=== PATIENT | female | born 1940 | race Caucasian/White ===

== ENCOUNTER 2016-09-19 17:30 | Emergency (ER) | payer MEDICARE ==
[2016-09-19] MEDS ORDERED: SODIUM CHLORIDE 0.9% 1000ML 1,000 ML ONE (18:04)
[2016-09-19] MEDS ORDERED: SODIUM CHLORIDE 0.9% 1000ML 1,000 ML IVS ONE ×2 (18:16→20:14)
--- NOTE | 2016-09-19 18:21 | ED.PDOC ---
History of Present Illness - General Chief Complaint: GI Problem Stated Complaint: rectal bleeding Time Seen by Provider: 09/19/16 18:16 Information Source: patient, RN notes reviewed, Vital Signs reviewed, family, EMS Exam Limitations: no limitations - History of Present Illness Initial Comments: Patient presents to the ER with rectal bleeding. This was noticed just prior to arrival. She was admitted to the halfway from a rehab center she has been at since a stroke in August. Last month she was admitted to [facility] for a rectal bleed which she reports stopped on its own after 1.5 days. She did she GI while there but reports they did not do a colonoscopy or upper endoscopy at that time. She denies any other symptoms. Denies abdominal pain. Abdominal Pain Onset Location: other - Denies pain Pain Radiation: no radiation Timing/Duration: 1 hour Improving Factors: nothing Worsening Factors: nothing Associated Symptoms: denies symptoms Review of Systems - Review of Systems Constitutional: States: no symptoms reported EENTM: States: no symptoms reported Respiratory: States: no symptoms reported Cardiology: States: no symptoms reported Gastrointestinal/Abdominal: States: see HPI, other - Rectal Bleeding. Denies: abdominal pain, constipation, diarrhea, nausea, vomiting Musculoskeletal: States: no symptoms reported Skin: States: no symptoms reported Neurological: States: pre-existing deficit - R hemiplegia s/p CVA All other Systems: No Change from Baseline Past Medical History (General) - Patient Medical History Hx Stroke: Yes Surgical History: appendectomy, other - Vaccination History Hx Tetanus, Diphtheria Vaccination: No Hx Influenza Vaccination: No Hx Pneumococcal Vaccination: No Immunizations Up to Date: Yes - Social History Hx Tobacco Use: No - Activities of Daily Living Senior Care/Assisted Living (if applicable):: [facility] Agency (if applicable):: None Family Medical History - Family History Mother Living Status: Hx Family Diabetes: Yes Physical Exam - Physical Exam General Appearance: Alert, Comfortable, Frail, No apparent distress Respiratory: chest non-tender, lungs clear, normal breath sounds, no respiratory distress, no accessory muscle use Cardiovascular/Chest: regular rate, rhythm, no edema, no gallop, no murmur Gastrointestinal/Abdominal: soft, tenderness - Suprapubic and LLQ with guarding , mass - LLQ Rectal Exam: other - large amout of bright red blood and stool Neurologic: alert, normal mood/affect, oriented x 3 Skin Exam: normal color, warm/dry Comments: Vital Signs - 24 hr 09/19/16 17:55 Temperature 97.5 F L Pulse Rate [ 84 Left radial] Respiratory 18 Rate Blood Pressure 119/69 [Left Arm] O2 Sat by Pulse 98 Oximetry Progress - Progress Progress: 09/19/16 18:58 She has had 2000cc of urine output into coates catheter. This could explain her abd tenderness and mass felt. She has UTI - will start antibiotics Review of records from [facility] show Hg between 8.8-10.5. GI consult - constipated, no colonoscopy done @ that time. No bleeding noted by database marketing analyst. 09/19/16 19:[address] Ivy @ [facility] who accepted patient in transfer for rectal bleeding. Discussed with family and patient who agree to transfer. Hg is stable, Levaquin IV is infusing - Results/Orders Results/Orders: Laboratory Tests 09/19/16 09/19/16 09/19/16 17:45 17:45 18:44 WBC 18.6 H RBC 3.10 L Hgb 8.8 L Hct 27.5 L MCV 88.9 MCH 28.3 MCHC 31.9 L RDW 14.6 H Plt Count 669 H MPV 7.8 Absolute Neuts (auto) 14.70 H Absolute Lymphs (auto) 2.30 Absolute Monos (auto) 1.40 H Absolute Eos (auto) 0.20 Absolute Basos (auto) 0.00 Neutrophils % 79.1 H Lymphocytes % 12.4 L Monocytes % 7.4 Eosinophils % 0.9 L Basophils % 0.2 Sodium 140 Potassium 3.8 Chloride 106 Carbon Dioxide 27 Anion Gap 10.8 L BUN 26 H Creatinine 0.63 BUN/Creatinine Ratio 41.3 H Random Glucose 111 H Serum Osmolality 284.9 Calcium 8.8 Total Bilirubin 0.3 AST 14 ALT 21 Alkaline Phosphatase 76 Serum Total Protein 5.3 L Albumin 2.2 L Globulin 3.1 Albumin/Globulin Ratio 0.7 L Urine Color Yellow Urine Appearance Turbid H Urine pH 5.5 Ur Specific Andrews 1.020 Urine Protein 100 H Urine Glucose (UA) Negative Urine Ketones Negative Urine Blood Moderate H Urine Nitrite Positive H Urine Bilirubin Negative Urine Urobilinogen 1.0 Ur Leukocyte Esterase Large H Urine RBC 5-10 H Urine WBC Tntc H Ur Epithelial Cells 1-3 Urine Bacteria 4+ H Vital Signs - 24 hr 09/19/16 09/19/16 17:55 19:21 Temperature 97.5 F L 98 F Pulse Rate 82 Pulse Rate [ 84 82 Left radial] Respiratory 18 18 Rate Blood Pressure 119/69 138/64 [Left Arm] O2 Sat by Pulse 98 96 Oximetry - EKG/XRAY/CT CT Ordered: Yes - Marked thickening of rectosigmoid colon wall - mass vs infection Departure - Departure Clinical Impression: Rectal bleeding, Colon tumor, Urinary retention UTI (urinary tract infection) Qualifiers: Urinary tract infection type: acute cystitis Hematuria presence: with hematuria Qualified Code(s): N30.01 - Acute cystitis with hematuria Time of Disposition: 20:02 Disposition: Transfer to Hospital Condition: Fair Departure Forms: ED Discharge - Pt. Copy, Patient Portal Self Enrollment Referrals: MARIA DE JESUS BRADEN [Primary Care Provider] - 1-2 Weeks Transfer to Outside Facility - Transfer Information Accepting Provider:: Dr. Ivy Accepting Facility: [facility] Reason for Transfer: required specialist not available
[2016-09-19] MEDS ORDERED: levoFLOXacin 500MG IV 500 MG in PREMIX BAG 1 BAG IVPB ONE (19:01)
--- NOTE | 2016-09-19 19:34 | CT ---
EXAM DESCRIPTION: Abdomen/Pelvis w/o Contrast CLINICAL HISTORY: 76 years Female Rectal bleed with LLQ mass COMPARISON: None. TECHNIQUE: Contiguous axial images obtained through the abdomen and pelvis without IV contrast. Reformatted images obtained. This exam was performed according to our department optimization program which includes automated exposure control, adjustment of the mA and/or kv according to patient size and/or use of iterative reconstruction technique. FINDINGS: The lung bases are clear. The liver appears unremarkable. The spleen and pancreas appear unremarkable. No adrenal masses. Small right renal cyst. Nonobstructing calculus in the left kidney. No evidence of obstructive uropathy or hydronephrosis. The gallbladder is distended. Cholelithiasis is present. There is ectasia of the abdominal aorta. Vascular calcification is present. Vascular calcification. Simmons catheter in a decompressed urinary bladder. There is abnormal asymmetric soft tissue in the rectosigmoid colon with surrounding inflammation and stranding. Findings are concerning for mass although colitis is not excluded. There is moderate fecal material in the colon. Findings may reflect constipation. Small amount of fluid in the pelvis. Multilevel degenerative change in the spine. IMPRESSION: There is marked wall thickening in the rectosigmoid colon which is asymmetric. Findings may reflect neoplasm versus proctocolitis. There is adjacent stranding in the perirectal and presacral space. Moderate fecal material in the colon which may reflect constipation Cholelithiasis with distended gallbladder Diverticulosis. Electronically signed by: Melina Trinidad 09/19/2016 7:34 PM CDT
[2016-09-19] MEDS ORDERED: levoFLOXacin 500MG IV 100 ML IVPB ONE (19:38)
[2016-09-19 20:47] VITALS: BP 98/58; TEMP 98; O2SAT 99
== END 2016-09-19 20:25 | disposition short-term general hospital (02) ==
LOC: ER 17:30
DX: D49.0 Neoplasm of unspecified behavior of digestive system (principal); R33.9 Retention of urine, unspecified; N30.01 Acute cystitis with hematuria
CPT/HCPCS: 36415; 74176; 80053; 81001; 85025; 87086; 87088; 87186; J1956; J7030

== ENCOUNTER → 2018-02-10 | Outpatient (CLI) | payer MEDICARE | LOC: GOCC 19:42 | PROVIDERS: ATTEND Internal Medicine | DX: N39.0 Urinary tract infection, site not specified (principal); M62.81 Muscle weakness (generalized) ==

== ENCOUNTER 2018-05-17 12:17 | Inpatient (IN) | payer MEDICARE, OTHER ==
--- NOTE | 2018-05-17 13:09 | ED.PDOC ---
History of Present Illness - General Chief Complaint: Respiratory Problem Stated Complaint: cough and congestion Time Seen by Provider: 05/17/18 12:32 Source: patient Exam Limitations: clinical condition - History of Present Illness Comments: PT SENT FOR EVALUATION OF COUGH AND CONGESTION, HYPOXEMIA. Timing/Duration: this morning Cough Quality/Degree: moderate, dry cough Associated Symptoms: denies symptoms Allergies/Adverse Reactions: Allergies Codeine Allergy (Verified 05/17/18 12:29) Iodine Allergy (Verified 05/17/18 12:29) Penicillins Allergy (Verified 05/17/18 12:29) Sulfa Antibiotics Allergy (Verified 05/17/18 12:29) Home Medications: Ambulatory Orders Amlodipine Besylate 5 mg PO DAILY 09/19/16 Lactobacillus [Acidophilus] 1 cap PO BID 09/19/16 Metoprolol Tartrate 50 mg PO BID 09/19/16 Multiple Vitamin [Multi Vitamin] 1 tab PO DAILY 09/19/16 Timolol Maleate (Ophth) [Timolol Maleate Ophthalmi] 0.5 % OP DAILY 09/19/16 Valproic Acid 500 mg PO DAILY 09/19/16 Ascorbic Acid [Vitamin C] 500 mg PO DAILY 05/17/18 Aspirin [Aspirin Adult Low Dose] 81 mg PO DAILY 05/17/18 Calcium Carbonate (Antacid) [Tums] 1 ea PO PRN 05/17/18 Gabapentin 300 mg PO DAILY 05/17/18 Glycolax Powder PRN 05/17/18 Guaifenesin [Mucinex] 600 mg PO PRN 05/17/18 Ipratropium-Albuterol [Ipratropium [place]/Albut] 1 jeffrey IN 1700 05/17/18 Ipratropium-Albuterol [Ipratropium [place]/Albut] 1 jeffrey IN PRN 05/17/18 Melatonin-Pyridoxine [Eql Melatonin/Vitamin B-6 5-1 mg] 1 tab PO BEDTIME 05/17/18 Naproxen Sodium [Aleve] 220 mg PO PRN 05/17/18 Ondansetron [Zofran Odt] 8 mg PO PRN 05/17/18 Valproic Acid 1,000 mg PO BEDTIME 05/17/18 Zinc Sulfate 220 mg PO DAILY 05/17/18 diphenhydrAMINE HCL [Benadryl] 25 mg PO PRN 05/17/18 Review of Systems - Review of Systems Constitutional: States: see HPI EENTM: States: see HPI Respiratory: States: cough. Denies: short of breath Cardiology: Denies: chest pain Gastrointestinal/Abdominal: Denies: diarrhea, vomiting Genitourinary: States: see HPI Musculoskeletal: States: see HPI Skin: States: see HPI Neurological: States: see HPI Endocrine: States: see HPI Hematologic/Lymphatic: States: see HPI Past Medical History (General) - Patient Medical History Hx Stroke: Yes Hx Congestive Heart Failure: No Hx Diabetes: No - Vaccination History Hx Tetanus, Diphtheria Vaccination: No Hx Influenza Vaccination: No Hx Pneumococcal Vaccination: No - Social History Hx Tobacco Use: Yes Hx Alcohol Use: No - history of use Hx Substance Use Treatment: No - Activities of Daily Living [facility]isted Living (if applicable[facility]:: [facility] (if applicable):: None Family Medical History - Family History Mother Living Status: Hx Family Diabetes: Yes Physical Exam - Physical Exam General Appearance: Alert, Frail, No apparent distress Eye Exam: bilateral normal ENT Exam: normal ENT inspection, hearing grossly normal Neck: full range of motion, supple, normal inspection Respiratory: other - CANNOT SIT UP, DIFFUSE RHONCHI WITH BIBASILAR RALES. SATS 84% ON RA (HYPOXEMIA) Cardiovascular/Chest: regular rate, rhythm, no murmur Gastrointestinal/Abdominal: non tender, soft, no organomegaly Extremity: normal range of motion, non-tender, normal inspection Neurologic: alert, other - R SIDED PARALYSIS (CHRONIC) Lymphatic: no adenopathy Progress - Progress Progress: 05/17/18 1400 PT STABLE, SATS 91% ON O2, SLIGHT RESP ACIDOSIS, BUT WILL HOLD OFF BIPAP PT IN NO DISTRESS. 1430 D/W JOHN BEAVER, WILL ADMIT - EKG/XRAY/CT XRAY: chest - BOO PERIHILAR INFILTRATES. Departure - Departure Clinical Impression: Hypoxemia, PVD (peripheral vascular disease) Pneumonia Qualifiers: Pneumonia type: due to unspecified organism Laterality: bilateral Lung location: unspecified part of lung Qualified Code(s): J18.9 - Pneumonia, unspecified organism Time of Disposition: 14:30 Disposition: Admit Patient Condition: Fair Home Medications: Ambulatory Orders Amlodipine Besylate 5 mg PO DAILY 09/19/16 Lactobacillus [Acidophilus] 1 cap PO BID 09/19/16 Metoprolol Tartrate 50 mg PO BID 09/19/16 Multiple Vitamin [Multi Vitamin] 1 tab PO DAILY 09/19/16 Timolol Maleate (Ophth) [Timolol Maleate Ophthalmi] 0.5 % OP DAILY 09/19/16 Valproic Acid 500 mg PO DAILY 09/19/16 Ascorbic Acid [Vitamin C] 500 mg PO DAILY 05/17/18 Aspirin [Aspirin Adult Low Dose] 81 mg PO DAILY 05/17/18 Calcium Carbonate (Antacid) [Tums] 1 ea PO PRN 05/17/18 Gabapentin 300 mg PO DAILY 05/17/18 Glycolax Powder PRN 05/17/18 Guaifenesin [Mucinex] 600 mg PO PRN 05/17/18 Ipratropium-Albuterol [Ipratropium [place]/Albut] 1 jeffrey IN 1700 05/17/18 Ipratropium-Albuterol [Ipratropium [place]/Albut] 1 jeffrey IN PRN 05/17/18 Melatonin-Pyridoxine [Eql Melatonin/Vitamin B-6 5-1 mg] 1 tab PO BEDTIME 05/17/18 Naproxen Sodium [Aleve] 220 mg PO PRN 05/17/18 Ondansetron [Zofran Odt] 8 mg PO PRN 05/17/18 Valproic Acid 1,000 mg PO BEDTIME 05/17/18 Zinc Sulfate 220 mg PO DAILY 05/17/18 diphenhydrAMINE HCL [Benadryl] 25 mg PO PRN 05/17/18 Decision To Admit - Decistion To Admit Decision to Admit Reason: Admit from ER Decision to Admit Date: 05/17/18 Decision to Admit Time: 14:00
--- NOTE | 2018-05-17 13:22 | RAD ---
EXAM DESCRIPTION: Chest,1 View CLINICAL HISTORY: 77 years Female, COUGH, HYPOXEMIA COMPARISON: None. TECHNIQUE: Single frontal view of the chest. IMPRESSION: Cardiac silhouette is enlarged. Aorta is partially calcified. Apparent opacification of the left upper lung is likely accounted by the patient's rotation during image acquisition. No focal or masslike consolidation otherwise. No pleural effusion or pneumothorax. Thoracic spondylosis. Electronically signed by: Tristan Amanda MD 05/17/2018 1:21 PM [facility]
[2018-05-17] MEDS ORDERED: IPRATROPIUM/ALBUTEROL 3 ML VIAL NEB ONE ×2 (13:36→13:40)
[2018-05-17] MEDS ORDERED: CEFEPIME 2 GM in SODIUM CHL 0.9% 50ML MIN-BAG+ 50 ML IVPB ONE (13:46)
[2018-05-17] MEDS ORDERED: SODIUM CHL 0.9% 50ML MIN-BAG+ 50 ML IVPB ONE ×3 (13:51→19:47)
[2018-05-17] MEDS ORDERED: CEFEPIME 2 GM VIAL ONE ×3 (13:51→19:48)
--- NOTE | 2018-05-17 15:11 | HP ---
SUPERVISING PHYSICIAN: Wilfredo Ponce MD CHIEF COMPLAINT: Coughing and congestion. HISTORY OF PRESENT ILLNESS: This is a 77-year-old female who is a resident of [facility]. She has a history of a stroke in the past with right sided paralysis. She has had low O2 saturations at the detention down to 84% and has had coughing and congestion for several days now. In the Emergency Room, her oxygen saturation on arrival was 84%. She came up to 91% on 2 liters of oxygen via nasal cannula. Her vital signs on admission were a temperature of 97.3, heart rate 65, blood pressure 99/79. Her blood pressure went down as low as 88/67. Respiratory rate 20, O2 saturation came up to 90% to 91% on 2 liters nasal cannula. Laboratory was done and showed a white count of 10,600 with a left shift on differential, hemoglobin 13, hematocrit 40.2. Chemistry showed electrolytes basically within normal limits, but her total bilirubin was 2.1, AST 177, ALT 140, alkaline phosphatase 386. BNP was 608. Albumin 2.9, globulin 4.3. Her initial lactic acid was 2.5. Subsequent lactic acid was 3.3 after fluids. Her blood gas showed pCO2 50, pO2 73, ABG 7.32, O2 saturation 95%. Chest x-ray per radiologic interpretation showed cardiac silhouette enlarged, aorta partially calcified, apparent opacification of the left upper lung is likely accounted for by the patient's rotation during image acquisition. No focal or masslike consolidation otherwise. No pleural effusion, no pneumothorax. Thoracic spondylosis, but on review of the chest x-ray myself, it looks like she has some early bibasilar atelectasis. Blood cultures were drawn. She was given cefepime in the Emergency Room as well as some fluids. I was called for hospital admission. It is to be noted that the patient is a very poor historian and we have incomplete records from the detention and she has never been admitted to this hospital previously. PAST MEDICAL HISTORY: 1. Hypertension. 2. 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 3. Neuropathy. 4. Questionable seizure as the patient is on valproic acid. 5. Questionable eye disorder. She is on timolol eyedrops. PAST SURGICAL HISTORY: Unknown. OUTPATIENT MEDICATIONS: Per the EMR and awaiting verification. ALLERGIES: CODEINE, IODINE, PENICILLINS, SULFAS. REVIEW OF SYSTEMS: Unable to assess due to the patient's inability to answer most questions. PHYSICAL EXAMINATION: VITAL SIGNS: Temperature 98.7. Heart rate 88. Blood pressure 104/62. Respiratory rate 2. O2 saturation 94% on 3 liters nasal cannula. GENERAL: This is a 77-year-old, frail female who is in no apparent distress. HEENT: Normocephalic, atraumatic. Pupils are equal and reactive. Oropharynx is clear. NECK: Supple without mass. RESPIRATORY: Diffuse rhonchi throughout with bibasilar rales. She is diminished at the bases. CARDIOVASCULAR: Regular rate and rhythm. GASTROINTESTINAL: Abdomen is soft, nondistended, nontender. Bowel sounds are positive. EXTREMITIES: No cyanosis, clubbing or edema. NEUROLOGIC: Awake, alert. She has right sided paralysis from a previous stroke. She is oriented to person only. She has a very difficult time answering questions. LABORATORY: Labs and films are as per history of present illness. IMPRESSION: 1. Hypercapnic, hypoxic respiratory failure. 2. Bilateral pneumonia with concerns for healthcare acquired pneumonia as she is a resident of [facility]. She had an O2 saturation of 84% and a blood pressure of 88/67 on admission. 3. Urinary tract infection. 4. History of cerebrovascular accident width right sided paralysis. 5. Elevated liver function tests. 6. Hypertension. PLAN: We will admit the patient to the hospital. Initially, she was to be put on BiPAP in the Emergency Room, but after several breathing treatments and being placed on oxygen, her oxygen saturations improved. We will use BiPAP as needed. The patient is a DNR. I have started the pneumonia guidelines including good pulmonary hygiene. I will continue the cefepime as ordered in the Emergency Room. Cefepime should cover the UTI as well. Will monitor cultures as they become available. I will restart her home medications as soon as they are verified. I am not sure why she will has elevated liver enzymes and we will continue to monitor those and I will see if I can get a better medical history on this patient from the detention tomorrow. She is on Protonix for ulcer prophylaxis and Lovenox for DVT prophylaxis. We will continue to monitor the patient closely and follow as needed. #[id number] [facility]
[2018-05-17] MEDS ORDERED: ACETAMINOPHEN 325 MG TAB PO PRN (16:46)
[2018-05-17] MEDS ORDERED: ALBUTEROL SULFATE 2.5 MG/3 ML VIAL NEB PRN (16:46)
[2018-05-17] MEDS ORDERED: ONDANSETRON INJ 4 MG/2 ML VIAL IV PRN (16:55)
[2018-05-17] MEDS: IV SET AND CAP CHANGE INJ INJ SCH (17:40)
[2018-05-17] MEDS ORDERED: SODIUM CHLORIDE 0.9% 1000ML 1,000 ML IVS ONE (17:44)
[2018-05-17] MEDS: CEFEPIME 2 GM in SODIUM CHL 0.9% 50ML MIN-BAG+ 50 ML IVPB SCH (18:00)
[2018-05-17] MEDS: guaiFENesin ER TAB 600 MG TAB PO SCH (18:01)
[2018-05-17] MEDS ORDERED: PANTOPRAZOLE SODIUM IV 40 MG VIAL ONE (19:48)
[2018-05-17] MEDS: DIVALPROEX SODIUM 250 MG TAB PO SCH (20:43)
[2018-05-17] MEDS: LACTOBACILLUS 1 TAB PO SCH (20:43)
[2018-05-17] MEDS: METOPROLOL TARTRATE 50 MG TAB PO SCH ×2 (20:43→20:48)
[2018-05-17] MEDS: MELATONIN PYRIDOXINE PO SCH (20:44)
[2018-05-17] MEDS: [UNRECOGNIZED DRUG - OTHER] PO SCH (20:44)
[2018-05-17] MEDS: ENOXAPARIN SODIUM 40 MG/0.4 ML SYG SUBCU SCH (20:44)
[2018-05-17] MEDS: SODIUM CHLORIDE 0.9% (FLUSH) 10 ML SYG IV SCH (20:44)
[2018-05-17] MEDS: IPRATROPIUM/ALBUTEROL 3 ML VIAL INH SCH (21:09)
[2018-05-18] MEDS: guaiFENesin ER TAB 600 MG TAB PO SCH ×2 (04:43→16:49)
[2018-05-18] MEDS: CEFEPIME 2 GM in SODIUM CHL 0.9% 50ML MIN-BAG+ 50 ML IVPB SCH ×2 (04:43→16:49)
[2018-05-18] MEDS: PANTOPRAZOLE SODIUM IV 40 MG VIAL IV SCH (05:58)
[2018-05-18] MEDS: IPRATROPIUM/ALBUTEROL 3 ML VIAL INH SCH ×4 (07:20→20:45)
[2018-05-18] MEDS: amLODIPine BESYLATE 5 MG TAB PO SCH (08:18)
[2018-05-18] MEDS: ASPIRIN (ENTERIC COATED) 81 MG TAB PO SCH (08:18)
[2018-05-18] MEDS: LACTOBACILLUS 1 TAB PO SCH ×2 (08:18→20:35)
[2018-05-18] MEDS: GABAPENTIN 300 MG CAP PO SCH (08:18)
[2018-05-18] MEDS: DIVALPROEX SODIUM 250 MG TAB PO SCH ×2 (08:19→20:35)
[2018-05-18] MEDS: SODIUM CHLORIDE 0.9% (FLUSH) 10 ML SYG IV SCH ×2 (08:19→20:35)
[2018-05-18] MEDS: METOPROLOL TARTRATE 50 MG TAB PO SCH ×2 (08:19→20:35)
[2018-05-18] MEDS: TIMOLOL MALEATE OP SCH (08:20)
--- NOTE | 2018-05-18 09:11 | RAD ---
EXAM DESCRIPTION: Chest,1 View CLINICAL HISTORY: Pneumonia COMPARISON: Chest radiograph dated May 17, 2018 TECHNIQUE: Upright portable PA view of the chest FINDINGS: Significant atherosclerosis and tortuosity of the thoracic aorta. Secondary to patient's position, the bilateral lung apices are obscured by the patient's chin. Cardiac silhouette and pulmonary vascularity are within normal limits. Previously described opacification in the left upper lung is not seen on this exam, and likely artifactual. Minimal linear opacities in the left lower lung zone most likely represent subsegmental atelectasis. Otherwise, lungs show no focal consolidative infiltrates. No significant pleural effusion. No pneumothorax. No acute osseous abnormality. IMPRESSION: 1. No acute cardiopulmonary process. 2. Other findings as above. Electronically signed by: Mekhi Bourne MD 05/18/2018 9:09 AM [facility]
[2018-05-18] MEDS ORDERED: CEFEPIME 2 GM VIAL ONE ×2 (16:46→19:28)
[2018-05-18] MEDS ORDERED: SODIUM CHL 0.9% 50ML MIN-BAG+ 50 ML IVPB ONE ×2 (16:46→19:28)
[2018-05-18] MEDS: ENOXAPARIN SODIUM 40 MG/0.4 ML SYG SUBCU SCH (20:35)
[2018-05-18] MEDS: MELATONIN PYRIDOXINE PO SCH (20:36)
[2018-05-18] MEDS: [UNRECOGNIZED DRUG - OTHER] PO SCH (20:36)
[2018-05-19] MEDS: CEFEPIME 2 GM in SODIUM CHL 0.9% 50ML MIN-BAG+ 50 ML IVPB SCH ×2 (05:14→17:33)
[2018-05-19] MEDS: guaiFENesin ER TAB 600 MG TAB PO SCH ×2 (05:15→17:33)
[2018-05-19] MEDS: PANTOPRAZOLE SODIUM IV 40 MG VIAL IV SCH (06:06)
--- NOTE | 2018-05-19 07:54 | PN ---
SUPERVISING PHYSICIAN: Wilfredo Ponce MD DATE: 05/18/18 SUBJECTIVE: The patient is lying in bed. She is nauseated. She has not been nauseated earlier in the day but since she has eaten her meal she has actually not thrown up but feels like she could at this time. Nurse was called and she was given Zofran and is somewhat better. Otherwise, she denies any chest pain, shortness of breath or nausea or vomiting. She does complain that she has some coughing. She is very weak at times but otherwise she feels slightly better than yesterday. OBJECTIVE: VITAL SIGNS: Temperature 97.6, heart rate 85, blood pressure 92/58,respiratory rate 20. 02 saturation 93% on 3 liters nasal cannula. RESPIRATORY: Coarse rhonchi throughout, somewhat diminished at the bases. CARDIAC: Regular rate and rhythm. GI: Abdomen soft, nondistended, non-tender. Bowel sounds are positive. NEURO: She is awake and alert and oriented to person only. LABORATORY: WBC 6.9 with hemoglobin of 11.9 and hematocrit 36.9. Electrolytes are basically within normal limits. AST has improved to 91 with ALT of 104, alkaline phosphatase 294. Preliminary blood cultures show no growth after 24 hours. Urine culture and sputum culture are pending. Chest x-ray shows no acute cardiopulmonary process. Other findings shows significant atherosclerosis and tortuosity of the thorax and aorta. No significant pleural effusion or osseous abnormalities. All other labs and films have been reviewed via the EMR. ASSESSMENT: 1.. Hypercapnic, hypoxic respiratory failure that is improving. 2. Bilateral pneumonia with concerns for healthcare acquired pneumonia as she is a resident of [facility]. She had an O2 saturation of 84% and a blood pressure of 88/67 on admission. 3. Urinary tract infection. 4. History of cerebrovascular accident width right-sided paralysis. 5. Elevated liver function tests. 6. Hypertension. PLAN: We will continue present supportive care including good pulmonary hygiene. I will repeat her labs in the morning. Will continue on the present antibiotics and monitor cultures as they become available. Her liver function tests have improved and will continue to monitor her closely. Her home medications have been restarted. She does have antiemetics for nausea. Otherwise, we will continue to monitor closely and follow as needed. #[id number] [facility]
[2018-05-19] MEDS: IPRATROPIUM/ALBUTEROL 3 ML VIAL INH SCH ×4 (08:10→19:25)
[2018-05-19] MEDS: LACTOBACILLUS 1 TAB PO SCH ×2 (10:04→20:34)
[2018-05-19] MEDS: DIVALPROEX SODIUM 250 MG TAB PO SCH ×2 (10:09→20:33)
[2018-05-19] MEDS: METOPROLOL TARTRATE 50 MG TAB PO SCH ×2 (10:09→20:34)
[2018-05-19] MEDS: ASPIRIN (ENTERIC COATED) 81 MG TAB PO SCH (10:09)
[2018-05-19] MEDS: TIMOLOL MALEATE OP SCH (12:18)
[2018-05-19] MEDS: SODIUM CHLORIDE 0.9% (FLUSH) 10 ML SYG IV PRN (12:20)
[2018-05-19] MEDS: GABAPENTIN 300 MG CAP PO SCH (12:23)
[2018-05-19] MEDS: amLODIPine BESYLATE 5 MG TAB PO SCH (12:23)
[2018-05-19] MEDS: SODIUM CHLORIDE 0.9% (FLUSH) 10 ML SYG IV SCH ×2 (12:24→20:35)
--- NOTE | 2018-05-19 16:11 | US ---
EXAM DESCRIPTION: Liver: ULTRASOUND. CLINICAL HISTORY: elevated liver enzymes COMPARISON: CT abdomen 09/19/2016 TECHNIQUE: Transabdominal scannin-dimensional and Doppler modes. FINDINGS: Gallbladder: Normal size with an echogenic stone seen in the neck, approximately 1 cm diameter with acoustic shadowing. No fluid around the gallbladder. No wall thickening. 2.2 mm. Non-tender with transducer pressure. Common bile duct: caliber 13 mm which is dilated. Liver: Heterogeneous but otherwise normal echogenicity; contour liver capsule smooth where seen. No fluid around the liver. Intrahepatic biliary ducts normal caliber. Doppler hepatopedal flow portal vein. Normal caliber. Long axis right lobe 15.8 cm. Pancreas: Included segments with normal echogenicity. Duct not seen. Right kidney: long axis measures 10.1 cm. Increased cortical echogenicity. 10 mm cortical thickness. No hydronephrosis IMPRESSION: 1. Stone in the neck of the gallbladder but no gallbladder enlargement or wall thickening. No fluid around the gallbladder and not tender during the examination. 2. Markedly dilated common bile duct but no obstructing elements seen in the lumen. No intrahepatic biliary dilatation. No ascites. Normal size of the liver. Normal vascularity. Smooth capsule. 3. Increased echogenicity of the right renal cortex and decreased thickness suggests a chronic process. No hydronephrosis. Electronically signed by: Hardy Ahn MD 05/19/2018 4:09 PM [employer]
[2018-05-19] MEDS ORDERED: SODIUM CHL 0.9% 50ML MIN-BAG+ 50 ML IVPB ONE ×2 (17:23→20:13)
[2018-05-19] MEDS ORDERED: CEFEPIME 2 GM VIAL ONE ×2 (17:23→20:14)
[2018-05-19] MEDS: ENOXAPARIN SODIUM 40 MG/0.4 ML SYG SUBCU SCH (20:34)
[2018-05-19] MEDS: MELATONIN PYRIDOXINE PO SCH (20:34)
[2018-05-19] MEDS: [UNRECOGNIZED DRUG - OTHER] PO SCH (20:34)
[2018-05-20] MEDS: CEFEPIME 2 GM in SODIUM CHL 0.9% 50ML MIN-BAG+ 50 ML IVPB SCH (04:52)
[2018-05-20] MEDS: guaiFENesin ER TAB 600 MG TAB PO SCH ×3 (04:53→17:02)
[2018-05-20] MEDS: PANTOPRAZOLE SODIUM IV 40 MG VIAL IV SCH (06:11)
[2018-05-20] MEDS: IPRATROPIUM/ALBUTEROL 3 ML VIAL INH SCH ×4 (07:53→20:36)
[2018-05-20] MEDS: TIMOLOL MALEATE OP SCH (09:00)
--- NOTE | 2018-05-20 09:22 | PN ---
SUPERVISING PHYSICIAN: Wilfredo Ponce MD DATE: 05/19/18 SUBJECTIVE: The patient is lying in bed. She said she feels much better than she has been. She still has cough but improved. We discussed her liver sonogram. Hopefully she can be discharged tomorrow and go back to [facility]. I explained that I was awaiting her sputum culture prior to her discharge. She denies any chest pain or nausea or vomiting. OBJECTIVE: VITAL SIGNS: Temperature 98.1, heart rate 87, blood pressure 94/68,respiratory rate 20. 02 saturation 94% on 3 liters nasal cannula. RESPIRATORY: A few scattered rhonchi throughout, diminished at the bases. She does get slightly tachypneic at times but can carry on a conversation without issues. CARDIAC: Regular rate and rhythm. GI: Abdomen soft, nondistended, non-tender. Bowel sounds are positive. NEURO: She is awake and alert and oriented to person and place only. LABORATORY: CBC is within normal limits with the exception that she has a left shift on her differential. Her electrolytes are basically within normal limits. Her liver enzymes went up today. Her bilirubin is 2.5, AST 158, ALT 140, alkaline phosphatase 375. Sputum culture is pending. Her preliminary blood cultures show no growth after 48 hours. Liver ultrasound shows: !. A stone in the neck of the gallbladder but no gallbladder enlargement or wall thickening, no fluid around the gallbladder and non-tender during the examination. 2. Markedly dilated common bile duct but no obstructing element seen in the lumen. No intrahepatic biliary dilatation, no ascites. Normal size of the liver, normal vascularity. Smooth capsule. 3. Increased echogenicity in the right renal cortex and decreased thickness suggests a chronic process. No hydronephrosis. All other labs and films have been reviewed via the EMR. ASSESSMENT: 1.. Hypercapnic, hypoxic respiratory failure that is improving. 2. Bilateral pneumonia with concerns for healthcare acquired pneumonia as she is a resident of [facility]. She had an O2 saturation of 84% and a blood pressure of 88/67 on admission. 3. Urinary tract infection. 4. History of cerebrovascular accident width right-sided paralysis. 5. Elevated liver function tests. 6. Hypertension. PLAN: We will continue present supportive care. Continue to await sputum cultures as well as monitor blood cultures. I will repeat lab in the morning and awaiting her hepatitis panel. Again, her liver functions have worsened and I do not have a good history on the patient. She is unable to tell me any of her past medical issues. At some point it may be recommended to discuss some of her issues with Dr. Burroughs but the patient is a DNR and I am not sure she would be a surgical candidate at any point. She does have a Simmons catheter present but that is from the long term and will keep that. Otherwise, we will continue to monitor closely and follow as needed. #[id number] MTDD
[2018-05-20] MEDS: SODIUM CHLORIDE 0.9% (FLUSH) 10 ML SYG IV SCH ×2 (09:49→20:47)
[2018-05-20] MEDS: METOPROLOL TARTRATE 50 MG TAB PO SCH ×2 (09:49→20:47)
[2018-05-20] MEDS: DIVALPROEX SODIUM 250 MG TAB PO SCH ×2 (09:49→20:46)
[2018-05-20] MEDS: ASPIRIN (ENTERIC COATED) 81 MG TAB PO SCH (09:49)
[2018-05-20] MEDS: LACTOBACILLUS 1 TAB PO SCH ×2 (09:49→20:47)
[2018-05-20] MEDS: amLODIPine BESYLATE 5 MG TAB PO SCH (09:49)
[2018-05-20] MEDS: GABAPENTIN 300 MG CAP PO SCH (09:49)
--- NOTE | 2018-05-20 12:04 | RAD ---
EXAM: Chest,1 View CLINICAL INDICATION: Pneumonia COMPARISON: 05/18/2018 FINDINGS: A single view of the chest was obtained. The heart size is normal. The pulmonary vascularity is unremarkable. The lungs are clear except for redemonstration of minimal atelectasis or scarring in the left lung base. There is no consolidation, infiltrate, pleural effusion, or pneumothorax. IMPRESSION: No evidence of active pulmonary disease. Electronically signed by: Abel Daugherty MD 05/20/2018 12:02 PM [facility]
[2018-05-20] MEDS: levoFLOXacin 750MG IV 750 MG in PREMIX BAG 1 BAG IVPB SCH (12:50)
[2018-05-20] MEDS: IV SET AND CAP CHANGE INJ INJ SCH (18:02)
--- NOTE | 2018-05-20 20:33 | PN ---
DATE: 05/20/18 SUPERVISING PHYSICIAN: Dameon Leonard M.D. SUBJECTIVE: The patient says she feels pretty well this morning. She is denying actually any pain. She has been afebrile. She does seem a little bit confused but is easily reoriented. OBJECTIVE: VITAL SIGNS: Temperature 97.9, pulse 87, blood pressure 98/64, respirations 20, satting 91% on nasal cannula at 2 liters. I's and O's show a negative balance of 500j with 650 in, 1150 out. Weight is 74.7 kg. CHEST: Lung sounds are diminished towards bilateral bases with notable prominent rhonchi heard bilaterally. No rales or obvious wheezing is noted. HEART: Regular rate and rhythm. ABDOMEN: Soft, non-tender. Positive bowel sounds. EXTREMITIES: Without any clubbing, cyanosis or edema. NEUROLOGIC: She is awake, alert and oriented to herself at this time, but easily reorients to place and time. She has left sided paralysis which is a residual from previous CVA. No other new findings are noted. LABORATORY: CBC shows white count 5,300 with hemoglobin 11.3, hematocrit 34.3, platelets 227,000. Differential shows a left shift with 5% bands today. Chemistries show a mildly decreased potassium at 3.4, BUN 36, creatinine 0.46 with glucose 84, magnesium 1.9. Bilirubin is again elevated at 2.3. AST is up to 170, ALT at 149, alkaline phosphatase 344. Albumin 2.2. Amylase and lipase are both showing normal limits. Toxicology shows Valproic acid is 64 which is within therapeutic ranges. Hepatitis panel is pending. MICROBIOLOGY: Sputum cultures final results show abundant mixed normal respiratory rickey. Urine culture is pending. Blood cultures remain negative after 3 days. RADIOLOGY: Chest x-ray this morning per radiology interpretation shows no evidence of acute pulmonary disease. ASSESSMENT: 1. Bibasilar pneumonia, questionable healthcare acquired with the patient being a resident of [facility] with a hypercapnic hypoxic component. 2. Urinary tract infection with cultures pending. 3. History of cerebrovascular accident width right-sided paralysis. 4. Persistent elevated liver function enzymes and total bilirubin with findings on ultrasound of the liver showing a stone in the neck of the gallbladder with no evidence of enlargement or wall thickening with a markedly dilated common bile duct but no obstructing elements. 5. History of hypertension but showing to be mildly hypotensive, likely secondary to #1. PLAN: The plan at this point is to consult with Dr. Burroughs in regards to findings of the ultrasound of the liver. Given that she has had an increase in bands and has been on Cefepime which possibly could be resulting in some of her elevated liver function, I will change her to Levaquin and renally dose as appropriate. Will await final urinary cultures to further target antibiotic therapy and will await Dr. Burroughs's consultation for further care plan. Until she can transition back to outpatient management will continue to monitor and treat as needed. #[id number] MTDD
--- NOTE | 2018-05-20 20:46 | CONS ---
DATE OF CONSULTATION: 05/20/18 HISTORY OF PRESENT ILLNESS: The patient is a 77 year-old female who is a resident of [facility] for the past 8 months. She has an indwelling Simmons catheter and a right hemiparesis status post cerebrovascular accident. She had become hypoxic and was coughing and congested at the [facility], and was brought to the hospital for this. The chest x-ray at admission did not show a discrete consolidation or effusion and her urine had a large number of white cells, so she was admitted and started on antibiotics and pulmonary toilet. She was initially started on Cefepime but that has been changed to Levaquin due to the elevated liver function. PAST MEDICAL HISTORY: 1. Hypertension. 2. Cerebrovascular accident. 3. Neuropathy. 4. Probable seizure disorder due to the fact the patient is on Valproic acid. 5. Some eye disorder. She is Timolol eye drops. PAST SURGICAL HISTORY: 1. Hemigastrectomy approximately 30 years ago, she believes it was for an ulcer. CURRENT MEDICATIONS: List is on the chart. ALLERGIES: CODEINE, IODINE, PENICILLINS AND SULFA. REVIEW OF SYSTEMS: The patient specifically denies problems with eating fatty food or any food. She denies right upper quadrant pain with radiation to the back. Denies significant nausea or weight loss prior to the hospitalization. PHYSICAL EXAMINATION: GENERAL: The patient is awake, alert and cooperative, and answered questions that I asked. HEENT: Sclera are not icteric. Mucous membranes are moist. NECK: Without adenopathy. CHEST: She has equal breath sounds bilaterally with upper airway sounds as she is coughing during the exam. ABDOMEN: Soft. There is minimal right upper quadrant tenderness, certainly no guarding, rebound or mass. PELVIC AND RECTAL: Examination are deferred. EXTREMITIES: She has a right sided hemiparesis. LABORATORY: Elevated liver function tests with bilirubin that has come down to 2. Chest x-ray is as noted. The ultrasound of her liver revealed a gallbladder with a stone in the neck but no pericholecystic fluid. No wall thickening. The common bile duct was dilated to about 13 mm but with no obvious obstructing lesion. IMPRESSION: 1. Upper respiratory tract infection, possible. 2. Urinary tract infection with indwelling Simmons catheter. 3. Cholelithiasis, rule out choledocholithiasis. 4. Hyperbilirubinemia. PLAN: Continue the Levaquin. Recheck lab in the morning. If the patient's bilirubin continues to climb, she will likely need an MRCP and possibly an ERCP during this hospitalization. If the number resolve and she is able to tolerate a diet, I would recommend completing her treatment for her urinary tract/respiratory tract, then obtaining an MRCP as an outpatient along with cardiac evaluation for possible ERCP and/or laparoscopic cholecystectomy. #[id number] MTDZ
[2018-05-20] MEDS: ENOXAPARIN SODIUM 40 MG/0.4 ML SYG SUBCU SCH (20:47)
[2018-05-20] MEDS: [UNRECOGNIZED DRUG - OTHER] PO SCH (20:47)
[2018-05-20] MEDS: MELATONIN PYRIDOXINE PO SCH (20:47)
[2018-05-20] MEDS: diphenhydrAMINE HCL 50 MG/ML VIAL IV PRN (22:57)
[2018-05-21] MEDS: guaiFENesin ER TAB 600 MG TAB PO SCH ×2 (04:33→18:38)
[2018-05-21] MEDS: PANTOPRAZOLE SODIUM IV 40 MG VIAL IV SCH (06:02)
[2018-05-21] MEDS: IPRATROPIUM/ALBUTEROL 3 ML VIAL INH SCH ×4 (08:43→20:46)
[2018-05-21] MEDS: LACTOBACILLUS 1 TAB PO SCH ×2 (10:38→21:47)
[2018-05-21] MEDS: amLODIPine BESYLATE 5 MG TAB PO SCH (10:39)
[2018-05-21] MEDS: METOPROLOL TARTRATE 50 MG TAB PO SCH ×2 (10:39→21:47)
[2018-05-21] MEDS: DIVALPROEX SODIUM 250 MG TAB PO SCH ×2 (10:39→21:46)
[2018-05-21] MEDS: SODIUM CHLORIDE 0.9% (FLUSH) 10 ML SYG IV SCH ×2 (10:40→21:48)
[2018-05-21] MEDS: ASPIRIN (ENTERIC COATED) 81 MG TAB PO SCH (10:40)
[2018-05-21] MEDS: GABAPENTIN 300 MG CAP PO SCH (10:40)
[2018-05-21] MEDS: TIMOLOL MALEATE OP SCH (10:41)
[2018-05-21] MEDS: levoFLOXacin 750MG IV 750 MG in PREMIX BAG 1 BAG IVPB SCH (11:38)
--- NOTE | 2018-05-21 21:05 | PN ---
DATE: 05/21/18 SUPERVISING PHYSICIAN: Dameon Leonard M.D. SUBJECTIVE: The patient has not had any complaints today. She has been coughing quite a bit and clearing her airways fairly well. She has had no fevers. OBJECTIVE: VITAL SIGNS: Temperature 98, pulse 116, blood pressure 89/62, respirations 16, satting 96% on nasal cannula at rest. I's and O's show a negative balance of 240 with 710 in 950 out. Weight is 75.1 kg. CHEST: Lung sounds are much clearer today but diminished towards the bases with just faint rhonchi heard bilaterally. HEART: Regular rate and rhythm. ABDOMEN: Soft, non- tender. Positive bowel sounds. EXTREMITIES: Without any clubbing, cyanosis or edema. NEUROLOGIC: She is alert and oriented times two, herself and location. At times is disoriented but easily reoriented. Her right sided paralysis which is residual from previous is also notable. No other findings are noted. LABORATORY: White count remains within normal limits at 7,300, hemoglobin and hematocrit are stable at 11.6 and 35.7 respectively. Platelet count is 240,000. Differential shows a resolving left shift. No bands are present today. Chemistry shows a persistent hypokalemia with potassium 3.4, BUN 28, creatinine 0.44. Liver functions are improving. Total bilirubin is down to 1.4, AST is down to 77, ALT is down to 115, alkaline phosphatase is down to 337. MICROBIOLOGY: Urine culture preliminary growth shows Enterococcus species Group B. Further reports pending. Final culture result on sputum showed abundant mixed normal rickey. Blood cultures remain negative at 4 days. RADIOLOGY: No additional radiographic studies today. ASSESSMENT: 1. Bibasilar pneumonia with concerns for possible healthcare acquired as the patient is a resident of [facility] with a hypercapnic hypoxic component showing good clinical improvement on Levaquin. 2. Urinary tract infection with Enterococcus species Group B with further studies pending. 3. Cholelithiasis with need to rule out choledocholithiasis, although bilirubin and liver enzymes are improving. 4. History of hypertension but showing to be mildly hypotensive, likely secondary to #1. PLAN: Will continue with current plan, having changed her to Levaquin. Await final culture results of the urine. Will continue with some fluids and follow her lab in the morning. Anticipate discharging tomorrow. She will need close clinical followup with Dr. Mcdermott if possible to set up as a new patient, and probably will need to have an MRCP and possibly ERCP at some point. She will need to be cleared by cardiology at some point in the future in case there is a need for any surgical intervention. She will be continued to be followed by Dr. Burroughs. Until we can transition to outpatient management will continue to monitor and treat as needed. #[id number] MTDG
[2018-05-21] MEDS: ENOXAPARIN SODIUM 40 MG/0.4 ML SYG SUBCU SCH (21:47)
[2018-05-21] MEDS: MELATONIN PYRIDOXINE PO SCH (21:48)
[2018-05-21] MEDS: [UNRECOGNIZED DRUG - OTHER] PO SCH (21:48)
[2018-05-21] MEDS: diphenhydrAMINE HCL 50 MG/ML VIAL IV PRN (21:57)
[2018-05-22] MEDS: PANTOPRAZOLE SODIUM IV 40 MG VIAL IV SCH (06:02)
[2018-05-22] MEDS: SODIUM CHLORIDE 0.9% (FLUSH) 10 ML SYG IV PRN (06:02)
[2018-05-22] MEDS: guaiFENesin ER TAB 600 MG TAB PO SCH (06:02)
[2018-05-22] MEDS: IPRATROPIUM/ALBUTEROL 3 ML VIAL INH SCH ×2 (08:08→13:17)
[2018-05-22] MEDS: DIVALPROEX SODIUM 250 MG TAB PO SCH (09:08)
[2018-05-22] MEDS: amLODIPine BESYLATE 5 MG TAB PO SCH (09:08)
[2018-05-22] MEDS: ASPIRIN (ENTERIC COATED) 81 MG TAB PO SCH (09:08)
[2018-05-22] MEDS: GABAPENTIN 300 MG CAP PO SCH (09:08)
[2018-05-22] MEDS: TIMOLOL MALEATE OP SCH (09:09)
[2018-05-22] MEDS: LACTOBACILLUS 1 TAB PO SCH (09:09)
[2018-05-22] MEDS: METOPROLOL TARTRATE 50 MG TAB PO SCH (09:09)
[2018-05-22] MEDS: SODIUM CHLORIDE 0.9% (FLUSH) 10 ML SYG IV SCH (09:09)
[2018-05-22] MEDS ORDERED: NITROFURANTOIN MONOHYDRATE MAC 100 MG CAP PO ONE (10:02)
[2018-05-22] MEDS: levoFLOXacin 750MG IV 750 MG in PREMIX BAG 1 BAG IVPB SCH (12:00)
[2018-05-22] MEDS ORDERED: NITROFURANTOIN MONOHYDRATE MAC 100 MG CAP ONE (12:24)
[2018-05-22 16:05] VITALS: BP 106/73; TEMP 97.8; O2SAT 99
[2018-05-22] MEDS ORDERED: NITROFURANTOIN MONOHYDRATE MAC 100 MG CAP PO SCH (17:00)
--- NOTE | 2018-06-01 11:52 | DS ---
SUPERVISING PHYSICIAN: Bronson Mcdermott MD ADMISSION DIAGNOSIS: 1. Hypercapnic, hypoxic respiratory failure. 2. Bilateral pneumonia with concerns for healthcare acquired pneumonia as she is a resident of [facility]. She had an O2 saturation of 84% and a blood pressure of 88/67 on admission. 3. Urinary tract infection. 4. History of cerebrovascular accident width right sided paralysis. 5. Elevated liver function tests. 6. Hypertension. DISCHARGE DIAGNOSIS: 1. Bibasilar pneumonia with concerns for possible healthcare acquired as the patient is a resident of [facility] with a hypercapnic, hypoxic component showing good clinical improvement on Levaquin. Cultures showed no growth, blood cultures or sputum cultures. 2. Urinary tract infection with final culture results showing Enterococcus Group B sensitive to ampicillin, nitrofurantoin and vancomycin. 3. Elevated bilirubin and liver enzymes returning to normal without any current evidence of cholelithiasis or choledocholithiasis, but needing further workup and possibly MRCP at discharge, with the patient initially having an elevated alkaline phosphatase, returning to baseline fairly quickly prior to discharge and felt to be related to possible passage of a gallstone within the ductal system needing further workup as an outpatient. 4. History of hypertension but showing to be mildly hypotensive, likely secondary to #1. REASON FOR HOSPITALIZATION: This is a 77-year-old female who is a resident of [facility]. She has a history of a stroke in the past with right sided paralysis. She has had low O2 saturations at the [facility] down to 84% and has had coughing and congestion for several days now. In the Emergency Room, her oxygen saturation on arrival was 84%. She came up to 91% on 2 liters of oxygen via nasal cannula. Her vital signs on admission were a temperature of 97.3, heart rate 65, blood pressure 99/79. Her blood pressure went down as low as 88/67. Respiratory rate 20, O2 saturation came up to 90% to 91% on 2 liters nasal cannula. Laboratory was done and showed a white count of 10,600 with a left shift on differential, hemoglobin 13, hematocrit 40.2. Chemistry showed electrolytes basically within normal limits, but her total bilirubin was 2.1, AST 177, ALT 140, alkaline phosphatase 386. BNP was 608. Albumin 2.9, globulin 4.3. Her initial lactic acid was 2.5. Subsequent lactic acid was 3.3 after fluids. Her blood gas showed pCO2 50, pO2 73, ABG 7.32, O2 saturation 95%. Chest x-ray per radiologic interpretation showed cardiac silhouette enlarged, aorta partially calcified, apparent opacification of the left upper lung is likely accounted for by the patient's rotation during image acquisition. No focal or masslike consolidation otherwise. No pleural effusion, no pneumothorax. Thoracic spondylosis, but on review of the chest x-ray myself, it looks like she has some early bibasilar atelectasis. Blood cultures were drawn. She was given cefepime in the Emergency Room as well as some fluids. I was called for hospital admission. the patient was a very poor historian with incomplete records from the [facility] and she had never been admitted to this hospital previously, but was admitted in stable condition. LABORATORY: CBC on admission showed white count 10,600, at discharge 7,500. Hemoglobin and hematocrit were stable at discharge at 11.6 and 35.7, respectively. Platelet count 240,000. Differential did show a left shift, but resolved prior to discharge. She did have 5% bands on 05/20/18, but this had normalized prior to discharge. Blood gas analysis showed pH 7.320, pCO2 50, pO2 73, bicarb 25.4, O2 saturation 95. Chemistries on admission showed normal electrolytes. At discharge, potassium was slightly low at 3.5, BUN 22, creatinine 0.45. Liver functions did show an elevated bilirubin that went up to 2.5 after admission. AST and ALT were all elevated as well as alkaline phosphatase with a maximum AST being 158, ALT 149, but returning to baseline and at discharge was 69 and AST at discharge was normal at 28. Alkaline phosphatase did go up to a maximum of 375, but was returning to baseline at 256 prior to discharge. Total bilirubin maxed out at 2.5 and normalized to 0.9. Amylase and lipase were both normal. Urinalysis showed orange urine, but otherwise within normal limits except for a small amount of leukocyte esterase. Microscopic showed 30 to 40 WBCS with rare bacteria and 3 epithelials. She did have a valproic acid of 64 which was within normal limits. Hepatitis panel was without any findings for A, B or C. MICROBIOLOGY: Final urine culture showed a group B enterococcus which is sensitive as noted above. Blood cultures remained negative after 5 days. Sputum culture final results showed abundant mixed normal respiratory rickey. HOSPITAL COURSE: Ms. Calderon was admitted on 05/17/18 with both urinary tract infection and concerns for bilateral pneumonia and initial hypercapnic/hypoxic respiratory failure. She was started on fluids, antibiotics and the day after admission, the patient was found to have elevated liver functions with concern for possible cholelithiasis versus choledocholithiasis. Dr. Burroughs was consulted and recommended continuation of fluids and treatment. She was continued on antibiotics for underlying urinary tract infection which included cefepime and Levaquin. She was continued on fluids. She had good pain control. She progressed well overnight and was found the next morning to have her liver functions returning to baseline levels. It was felt she had probably passed a gallstone and was no longer having any symptoms and responding well to treatment. It was felt she could continue with outpatient management to followup with Dr. Burroughs as needed as well as her primary care provider. PLAN: Ms. Calderon was discharged on 05/22/18 with instructions to followup with Dr. Mcdermott on 05/29/18 at 10:45 AM. She was to resume her home medications per JUN. She had an MRCP scheduled as an outpatient. She had noted she probably would refuse to have that done once discharged. Her diet was to be low-fat diet as instructed by Dr. Burroughs. She was to return to the hospital should she have any concerning symptoms. Diet at discharge was low-fat diet. Activity to per physical therapy. Medications prescribed at discharge included: 1. Levaquin 500 mg for 7 days. 2. Nitrofurantoin 100 mg twice daily for 5 days. DISPOSITION: The patient is discharged to [facility]. Her urine culture did show resistance to Levaquin, however, the patient has shown good response to treatment. There was again concern for possible pneumonia, therefore, she was continued on Levaquin. Her cultures showed sensitivity to nitrofurantoin, therefore, she was started on nitrofurantoin as well for the underlying urinary tract infection. CONDITION AT DISCHARGE: Stable and improving. #[id number] [facility]
== END 2018-05-22 15:20 | DRG 189 ==
LOC: ER 12:17 → MS 15:11 → OBSVTOIN 15:11
PROVIDERS: ADMIT Nurse Practitioner Acute Care; ATTEND Nurse Practitioner Family
DX: J96.91 Respiratory failure, unspecified with hypoxia (principal); J18.9 Pneumonia, unspecified organism; I69.351 Hemiplegia and hemiparesis following cerebral infarction affecting right dominant side; N39.0 Urinary tract infection, site not specified; J96.92 Respiratory failure, unspecified with hypercapnia; I10 Essential (primary) hypertension; G62.9 Polyneuropathy, unspecified; R74.8 Abnormal levels of other serum enzymes; E87.6 Hypokalemia; K80.20 Calculus of gallbladder without cholecystitis without obstruction; I95.9 Hypotension, unspecified; Y95 Nosocomial condition; Z66 Do not resuscitate; Z88.0 Allergy status to penicillin; Z88.2 Allergy status to sulfonamides; Z88.5 Allergy status to narcotic agent; Z91.048 Other nonmedicinal substance allergy status

== ENCOUNTER 2019-03-05 21:55 | Inpatient (IN) | payer MEDICARE, OTHER ==
[2019-03-05] MEDS ORDERED: IPRATROPIUM/ALBUTEROL 3 ML VIAL NEB ONE (22:05)
--- NOTE | 2019-03-05 22:22 | RAD ---
EXAM DESCRIPTION: Chest,1 View CLINICAL HISTORY: 78 years Female hypoxia, wheezing COMPARISON: May 20, 2018. TECHNIQUE: AP view of the chest was obtained. FINDINGS: Cardiac silhouette is enlarged. Central vessels are noted increased. Patient is rotated to the left. No infiltrates or effusions seen. No consolidation. No pneumothorax. IMPRESSION: Enlarged heart with no evidence for congestive heart failure. No infiltrates seen. Electronically signed by: Macarena Lagunas MD 03/05/2019 10:21 PM [facility]
[2019-03-05] MEDS ORDERED: CEFEPIME 1 GM in SODIUM CHLORIDE 0.9% 50ML 50 ML IVPB ONE (22:45)
[2019-03-05] MEDS ORDERED: CEFEPIME 2 GM VIAL ONE (22:59)
[2019-03-05] MEDS ORDERED: SODIUM CHLORIDE 0.9% 50ML 50 ML ONE (22:59)
[2019-03-05] MEDS ORDERED: FUROSEMIDE INJ 20 MG/2 ML VIAL IV ONE (23:15)
--- NOTE | 2019-03-05 23:18 | ED.PDOC ---
History of Present Illness - General Chief Complaint: General Stated Complaint: altered mental status Time Seen by Provider: 03/05/19 21:57 Source: patient Exam Limitations: clinical condition - History of Present Illness Initial Comments: the patient's a 78-year-old female sent over from the [facility] secondary to increasing oxygen demand, mild confusion and change in her urine color. She does have a chronic indwelling Simmons catheter that has become more cloudy over the last 24 hours. Based upon a urinalysis sent in from them earlier today she does have a urinary tract infection and has had problems from these before. Additionally the patient was starting to require oxygen again. She was requiring about 2-1/2 L by the time EMS arrived. She was refusing her breathing treatments. She agreed to have them here and her lungs did actually clear up fairly well with the breathing treatments here. She is still requiring about a liter to maintain her oxygen saturations when she sleeps. She still does have some mild scattered wheezes but much improved since her arrival. The patient does have atrial fibrillation that is rate controlled and Lasix until we gave her the breathing treatments. I do not have records of her having atrial fibrillation in the past but then again I do not have any previous EKGs. The patient has had strokes in the past. No evidence of any new stroke. She does have chronic changes related to her previous strokes. No evidence of new pain. Timing/Duration: unsure Severity: moderate Improving Factors: nothing Worsening Factors: nothing Associated Symptoms: cough, malaise, shortness of breath Allergies/Adverse Reactions: Allergies Codeine Allergy (Verified 05/17/18 12:29) Iodine Allergy (Verified 05/17/18 12:29) Penicillins Allergy (Verified 05/17/18 12:29) Sulfa Antibiotics Allergy (Verified 05/17/18 12:29) Home Medications: Ambulatory Orders Amlodipine Besylate 5 mg PO DAILY 09/19/16 Lactobacillus [Acidophilus] 1 cap PO BID 09/19/16 Metoprolol Tartrate 50 mg PO BID 09/19/16 Multiple Vitamin [Multi Vitamin] 1 tab PO DAILY 09/19/16 Timolol Maleate (Ophth) [Timolol Maleate Ophthalmi] 0.5 % OP DAILY 09/19/16 Valproic Acid 500 mg PO DAILY 09/19/16 Ascorbic Acid [Vitamin C] 500 mg PO DAILY 05/17/18 Aspirin [Aspirin Adult Low Dose] 81 mg PO DAILY 05/17/18 Calcium Carbonate (Antacid) [Tums] 1 ea PO PRN 05/17/18 Gabapentin 300 mg PO DAILY 05/17/18 Glycolax Powder PRN 05/17/18 Guaifenesin [Mucinex] 600 mg PO PRN 05/17/18 Ipratropium-Albuterol [Ipratropium [place]/Albut 0.5-2.5 (3) mg/3Ml] 1 jeffrey IN 1700 05/17/18 Ipratropium-Albuterol [Ipratropium [place]/Albut 0.5-2.5 (3) mg/3Ml] 1 jeffrey IN PRN 05/17/18 Melatonin-Pyridoxine [Eql Melatonin/Vitamin B-6 5-1 mg] 1 tab PO BEDTIME 05/17/18 Naproxen Sodium [Aleve] 220 mg PO PRN 05/17/18 Ondansetron [Zofran Odt] 8 mg PO PRN 05/17/18 Valproic Acid 1,000 mg PO BEDTIME 05/17/18 Zinc Sulfate 220 mg PO DAILY 05/17/18 diphenhydrAMINE HCL [Benadryl] 25 mg PO PRN 05/17/18 Nitrofurantoin Monohydrate Mac [Macrobid] 100 mg PO BIDFD 5 Days cap 05/22/18 levoFLOXacin [Levaquin] 500 mg PO DAILY 7 Days tab 05/22/18 Review of Systems - Review of Systems Constitutional: States: malaise, weakness EENTM: States: no symptoms reported Respiratory: States: cough, short of breath, wheezing Cardiology: States: no symptoms reported Gastrointestinal/Abdominal: States: no symptoms reported Genitourinary: States: no symptoms reported Musculoskeletal: States: no symptoms reported - chronic issues Skin: States: no symptoms reported Neurological: States: no symptoms reported - chronic problems Endocrine: States: no symptoms reported All other Systems: No Change from Baseline Past Medical History (General) - Patient Medical History Hx Seizures: No Hx Stroke: Yes Hx Dementia: No Hx Asthma: No Hx of COPD: No Hx Cardiac Disorders: No Hx Congestive Heart Failure: No Hx Pacemaker: No Hx Hypertension: Yes Hx Thyroid Disease: No Hx Diabetes: No Hx Gastroesophageal Reflux: No Hx Renal Disease: No Hx Cancer: No Hx of HIV: No Hx Hepatitis C: No Hx MRSA: No Surgical History: noncontributory - Vaccination History Hx Tetanus, Diphtheria Vaccination: No Hx Influenza Vaccination: No Hx Pneumococcal Vaccination: No - Social History Hx Tobacco Use: Yes Hx Alcohol Use: No - history of use Hx Substance Use: No Hx Substance Use Treatment: No Hx Physical Abuse: No Hx Emotional Abuse: No - Activities of Daily Living [facility]if applicable[facility] Family Medical History - Family History Mother Living Status: Hx Family Diabetes: Yes Physical Exam - Physical Exam General Appearance: Alert, Comfortable, No apparent distress - she is fairly pleasantly demented. She is alert and interactive. Eye Exam: bilateral normal Ears, Nose, Throat: hearing grossly normal - chronically mildly decreased bilaterally, normal pharynx Neck: full range of motion, supple Respiratory: accessory muscle use, rhonchi, wheezing Cardiovascular/Chest: other - +1 edema bilaterally. Regular rate but irregular rhythm. Peripheral Pulses: radial,right: 2+, radial,left: 2+ Gastrointestinal/Abdominal: non tender, soft Rectal Exam: deferred Extremity: no calf tenderness, pelvis stable, deformity - chronic, pedal edema, other - chronic deficits of bilateral lower extremities and the right upper extremities from previous stroke. Chronic edema in his extremities due to decreased movement. She was a left upper extremity well. 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 Skin Exam: pallor Comments: Vital Signs - 24 hr 03/05/19 21:55 Temperature 100.0 F H Pulse Rate [ 78 monitor] Respiratory 20 Rate Blood Pressure 92/74 [Left Arm] O2 Sat by Pulse 95 Oximetry Progress - Progress Progress: 03/05/19 23:24 the patient's a 78-year-old female presenting to the emergency room for a urinary tract infection and a COPD exacerbation. The patient is being placed on cefepime and azithromycin. The patient does have an indwelling chronic Simmons catheter. The patient does have atrial fibrillation that is actually rate controlled without the breathing treatment. I'm uncertain and have been unable to figure out if the patient has had atrial fibrillation before. her primary care will need to be contacted on this tomorrow. Certainly, with previous intracranial hemorrhages, rushing the patient on blood thinners is likely not a good idea. from the pulmonary standpoint, the patient responded very well to the DuoNeb treatment. Xopenex may be preferred over albuterol with this patient given the mild tachycardic response. Continue oxygen supplementation for now. She will see receive a small steroid dosages well for the COPD exacerbation. No diuretics have been given at this time. Admit for continued care. Blood cultures have been done. - Results/Orders Results/Orders: chest x-ray shows some chronic mild cardiomegaly with minimal vascular congestion. Changes of COPD. No obvious large effusions. EKG shows atrial fibrillation at a rate of 115 bpm. This is after the breathing treatment. Possible Q waves in lead 3. Normal axis. Poor R-wave progression in anterior leads. No definitive ST segment or T-wave changes indicative of acute ischemia. Normal QT interval. No previous EKG to compare to. Laboratory Tests 03/05/19 03/05/19 03/05/19 22:38 22:38 22:38 WBC 12.8 H RBC 4.62 Hgb 13.5 Hct 41.6 MCV 90.2 MCH 29.3 MCHC 32.5 L RDW 15.4 H Plt Count 261 MPV 7.6 Absolute Neuts (auto) 10.40 H Absolute Lymphs (auto) 0.90 L Absolute Monos (auto) 1.30 H Absolute Eos (auto) 0.10 Absolute Basos (auto) 0.10 Neutrophils % 81.5 H Lymphocytes % 7.2 L Monocytes % 10.2 H Eosinophils % 0.7 L Basophils % 0.4 PT 9.8 INR 0.98 PTT (SP) 29.3 Sodium 137 Potassium 4.2 Chloride 94 L Carbon Dioxide 31 Anion Gap 16.2 BUN 26 H Creatinine 0.61 BUN/Creatinine Ratio 42.6 H Random Glucose 174 H Serum Osmolality 282.8 Lactic Acid Calcium 9.1 Magnesium 2.0 Total Bilirubin 0.8 AST 17 ALT 9 L Alkaline Phosphatase 73 Creatine Kinase 14 L CK-MB (CK-2) 0.5 CK-MB (CK-2) % Not Reportable Troponin I < 0.02 B-Natriuretic Peptide 198.0 H Serum Total Protein 6.6 Albumin 2.6 L Globulin 4.0 H Albumin/Globulin Ratio 0.7 L 03/05/19 22:38 WBC RBC Hgb Hct MCV MCH MCHC RDW Plt Count MPV Absolute Neuts (auto) Absolute Lymphs (auto) Absolute Monos (auto) Absolute Eos (auto) Absolute Basos (auto) Neutrophils % Lymphocytes % Monocytes % Eosinophils % Basophils % PT INR PTT (SP) Sodium Potassium Chloride Carbon Dioxide Anion Gap BUN Creatinine BUN/Creatinine Ratio Random Glucose Serum Osmolality Lactic Acid 1.9 Calcium Magnesium Total Bilirubin AST ALT Alkaline Phosphatase Creatine Kinase CK-MB (CK-2) CK-MB (CK-2) % Troponin I B-Natriuretic Peptide Serum Total Protein Albumin Globulin Albumin/Globulin Ratio Departure - Departure Clinical Impression: COPD with acute exacerbation UTI (urinary tract infection) due to urinary indwelling Simmons catheter Qualifiers: Indwelling urinary catheter type: indwelling urethral catheter Encounter type: initial encounter Qualified Code(s): T83.511A - Infection and inflammatory reaction due to indwelling urethral catheter, initial encounter; N39.0 - Urinary tract infection, site not specified Disposition: Admit Patient Departure Forms: ED Discharge - Pt. Copy, Patient Portal Self Enrollment Referrals: MARIA DE JESUS BRADEN [Primary Care Provider] - 1-2 Weeks Home Medications: Ambulatory Orders Amlodipine Besylate 5 mg PO DAILY 09/19/16 Lactobacillus [Acidophilus] 1 cap PO BID 09/19/16 Metoprolol Tartrate 50 mg PO BID 09/19/16 Multiple Vitamin [Multi Vitamin] 1 tab PO DAILY 09/19/16 Timolol Maleate (Ophth) [Timolol Maleate Ophthalmi] 0.5 % OP DAILY 09/19/16 Valproic Acid 500 mg PO DAILY 09/19/16 Ascorbic Acid [Vitamin C] 500 mg PO DAILY 05/17/18 Aspirin [Aspirin Adult Low Dose] 81 mg PO DAILY 05/17/18 Calcium Carbonate (Antacid) [Tums] 1 ea PO PRN 05/17/18 Gabapentin 300 mg PO DAILY 05/17/18 Glycolax Powder PRN 05/17/18 Guaifenesin [Mucinex] 600 mg PO PRN 05/17/18 Ipratropium-Albuterol [Ipratropium [place]/Albut 0.5-2.5 (3) mg/3Ml] 1 jeffrey IN 1700 05/17/18 Ipratropium-Albuterol [Ipratropium [place]/Albut 0.5-2.5 (3) mg/3Ml] 1 jeffrey IN PRN 05/17/18 Melatonin-Pyridoxine [Eql Melatonin/Vitamin B-6 5-1 mg] 1 tab PO BEDTIME 05/17/18 Naproxen Sodium [Aleve] 220 mg PO PRN 05/17/18 Ondansetron [Zofran Odt] 8 mg PO PRN 05/17/18 Valproic Acid 1,000 mg PO BEDTIME 05/17/18 Zinc Sulfate 220 mg PO DAILY 05/17/18 diphenhydrAMINE HCL [Benadryl] 25 mg PO PRN 05/17/18 Nitrofurantoin Monohydrate Mac [Macrobid] 100 mg PO BIDFD 5 Days cap 05/22/18 levoFLOXacin [Levaquin] 500 mg PO DAILY 7 Days tab 05/22/18 Decision To Admit - Decistion To Admit Decision to Admit Reason: Medical Nature Decision to Admit Date: 03/05/19 Decision to Admit Time: 23:28
[2019-03-05] MEDS ORDERED: methylPREDNISolone SODIUM SUC 125 MG/2 ML VIAL IV ONE (23:27)
[2019-03-05] MEDS ORDERED: AZITHROMYCIN IV 500 MG in SODIUM CHLORIDE 0.9% 250ML 250 ML IVPB ONE (23:28)
[2019-03-05] MEDS ORDERED: SODIUM CHLORIDE 0.9% (FLUSH) 10 ML SYG IV PRN (23:29)
--- NOTE | 2019-03-05 23:52 | HP ---
SUPERVISING PHYSICIAN: Dameon Leonard MD CHIEF COMPLAINT: Shortness of breath. HISTORY OF PRESENT ILLNESS: This is a 78-year-old female who resides at [facility]. She came to the Emergency Room with altered mental status and shortness of breath. Apparently she was placed on oxygen there. She does not utilize oxygen on a regular basis. Additionally, she has an indwelling Simmons catheter that has become cloudy over the past 24 hours or so. For that reason, she came to the Emergency Room. When she came in the Emergency Room, her workup included labs and films. Her chest x-ray showed cardiomegaly with no congestive heart failure and no infiltrates. Urinalysis was done earlier on 03/05/19 and showed positive nitrites and findings consistent with urinary tract infection. In the Emergency Room, she was given steroids for COPD exacerbation as well as some nebulizers. She was referred for admission for these reasons. This morning, the patient is alert, answers questions appropriately. She still has a little bit of shortness of breath and a little bit of wheezing, but otherwise she is not in sever distress. PAST MEDICAL HISTORY: 1. Hypertension. 2. 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 3. Neuropathy. 4. Possible seizures. 5. Enterococcus urinary tract infection on her last admission. PAST SURGICAL HISTORY: She states she does not know of any surgeries. MEDICATIONS: Please see medication reconciliation record once verified in the computer. ALLERGIES: CODEINE, IODINE, PENICILLIN, SULFA. FAMILY HISTORY: Unable to be completely obtained due to the patient's confusion, however, she is alert. SOCIAL HISTORY: Unable to be completely obtained due to the patient's confusion, however, she is alert. REVIEW OF SYSTEMS: Unable to be completely obtained due to the patient's confusion, however, she is alert. PHYSICAL EXAMINATION: VITAL SIGNS: Blood pressure 101/60. Heart rate 96. Respiratory rate 20. Temperature 98.0. Oxygen saturation 98%. GENERAL: Ms. Calderon is a 78-year-old female who is in no active distress currently. NEUROLOGIC: The patient is alert, but confused and this is chronic for her. LUNGS: Bilateral wheezing, but otherwise no rhonchi or rales. CARDIOVASCULAR: Irregular rate and rhythm. Normal S1, S2. ABDOMEN: Obese, soft. Positive bowel sounds. EXTREMITIES: Lower extremities with some trace ankle edema. Pulses 2+. Capillary refill is less than 2 seconds. LABORATORY: White count 12.8, hemoglobin 13.5, platelet count 261. Coags are normal. Chemistry with a sodium 137, potassium 4.0, chloride 94, CO2 31, BUN 26, creatinine 0.61, glucose 174, calcium 9.1, magnesium 2.0. Liver function tests are normal. ASSESSMENT: 1. Chronic obstructive pulmonary disease exacerbation. 2. Pyelonephritis. 3. Altered mental status. 4. Hypertension. 5. History of cerebrovascular accident. 6. Atrial fibrillation. PLAN: At this point, we will put her on empiric antibiotics. Due to her indwelling catheter and being in a nursing facility, I am going to go ahead and add vancomycin, especially given the fact she had Enterococcus in the past. She will be on vancomycin and cefepime for the urinary tract infection. Additionally, I have her on nebulizers and steroids for COPD exacerbation. Hopefully the treatment of these issues will help with her mental status. I am unsure what her baseline status is, however, I am told she is chronically confused. Additionally, she does have atrial fibrillation, but the rate is controlled. I do not see that she is on chronic anticoagulation. I have placed her on Lovenox here. She will be on Eliquis when she goes home. She is not ambulatory, she is bedbound, so it does not appear that there is any risk of fall at this time. #[id number] MTDD
[2019-03-06] MEDS ORDERED: SODIUM CHLORIDE 0.9% 250ML 250 ML ONE ×2 (00:02→11:32)
[2019-03-06] MEDS ORDERED: AZITHROMYCIN IV 500 MG VIAL IVPB ONE (00:02)
[2019-03-06] MEDS: ENOXAPARIN SODIUM 40 MG/0.4 ML SYG SUBCU SCH (00:12)
[2019-03-06] MEDS: IV SET AND CAP CHANGE INJ INJ SCH (00:30)
[2019-03-06] MEDS: IPRATROPIUM/ALBUTEROL 3 ML VIAL INH SCH ×7 (01:14→23:09)
[2019-03-06] MEDS: OMEPRAZOLE CAP 20 MG CAP PO SCH (06:13)
[2019-03-06] MEDS: methylPREDNISolone SODIUM SUC 40 MG/ML VIAL IV SCH ×3 (06:13→21:38)
[2019-03-06] MEDS ORDERED: VANCOMYCIN PER PHARMACY INJ SCH (08:00)
[2019-03-06] MEDS ORDERED: GLYCOLAX PO SCH (08:45)
[2019-03-06] MEDS ORDERED: CALCIUM CARBONATE (ANTACID) 500 MG CHEWABLE TAB PO PRN (08:45)
[2019-03-06] MEDS ORDERED: ONDANSETRON ODT (ER DISP) 8 MG TAB PO PRN (08:45)
[2019-03-06] MEDS ORDERED: NON-FORMULARY MEDICATION 1 EA MIS (Lactobacillus [Acidophilus] 1 CAP) PO SCH (09:00)
[2019-03-06] MEDS ORDERED: VALPROIC ACID 500 MG PO SCH (09:00)
[2019-03-06] MEDS ORDERED: NON-FORMULARY MEDICATION 1 EA MIS (Potassium Chloride [Potassium Chloride Er] 10 MEQ) PO SCH (09:00)
[2019-03-06] MEDS ORDERED: NON-FORMULARY MEDICATION 1 EA MIS (Furosemide [Furosemide] 20 MG) PO SCH (09:00)
[2019-03-06] MEDS ORDERED: MULTIPLE VITAMIN 1 EA TAB PO SCH (09:00)
[2019-03-06] MEDS ORDERED: POTASSIUM CHLORIDE 10 MEQ TAB PO ONE (09:18)
[2019-03-06] MEDS ORDERED: POLYETHYLENE GLYCOL 3350 17 GM PCKT ONE (09:18)
[2019-03-06] MEDS ORDERED: FUROSEMIDE 40 MG TAB ONE (09:18)
[2019-03-06] MEDS ORDERED: LACTOBACILLUS 1 TAB ONE (09:19)
[2019-03-06] MEDS: METOPROLOL TARTRATE 50 MG TAB PO SCH ×3 (09:25→21:53)
[2019-03-06] MEDS: ASPIRIN (ENTERIC COATED) 81 MG TAB PO SCH (09:25)
[2019-03-06] MEDS: guaiFENesin ER TAB 600 MG TAB PO SCH ×2 (09:26→21:38)
[2019-03-06] MEDS: GABAPENTIN 300 MG CAP PO SCH (09:26)
[2019-03-06] MEDS: amLODIPine BESYLATE 5 MG TAB PO SCH (09:26)
[2019-03-06] MEDS ORDERED: CEFEPIME 2 GM VIAL ONE (11:32)
[2019-03-06] MEDS ORDERED: VANCOMYCIN HCL INJ 1,000 MG VIAL IVPB ONE (11:32)
[2019-03-06] MEDS ORDERED: SODIUM CHL 0.9% 50ML MIN-BAG+ 50 ML IVPB ONE (11:32)
[2019-03-06] MEDS: CEFEPIME 2 GM in SODIUM CHL 0.9% 50ML MIN-BAG+ 50 ML IVPB SCH (11:34)
[2019-03-06] MEDS: VANCOMYCIN HCL INJ 750 MG in SODIUM CHLORIDE 0.9% 250ML 250 ML IVPB SCH (12:24)
[2019-03-06] MEDS: NYSTATIN POWDER 15GM BTTL TOP SCH ×3 (15:16→21:38)
[2019-03-06] MEDS ORDERED: VALPROIC ACID 1000 MG PO SCH (21:00)
[2019-03-06] MEDS: DIVALPROEX SODIUM DR 250 MG TAB PO SCH (21:37)
[2019-03-06] MEDS: LACTOBACILLUS 1 TAB PO SCH (21:38)
[2019-03-06] MEDS: TIMOLOL MALEATE OP SCH (21:39)
[2019-03-07] MEDS: ENOXAPARIN SODIUM 40 MG/0.4 ML SYG SUBCU SCH ×2 (00:30→23:29)
[2019-03-07] MEDS ORDERED: CEFEPIME 2 GM VIAL ONE ×3 (00:30→18:54)
[2019-03-07] MEDS ORDERED: SODIUM CHL 0.9% 50ML MIN-BAG+ 50 ML IVPB ONE ×3 (00:30→18:54)
[2019-03-07] MEDS ORDERED: VANCOMYCIN HCL INJ 1,000 MG VIAL IVPB ONE ×2 (00:30→11:32)
[2019-03-07] MEDS ORDERED: SODIUM CHLORIDE 0.9% 250ML 250 ML ONE ×2 (00:30→11:31)
[2019-03-07] MEDS: CEFEPIME 2 GM in SODIUM CHL 0.9% 50ML MIN-BAG+ 50 ML IVPB SCH ×2 (00:39→11:35)
[2019-03-07] MEDS ORDERED: ACETAMINOPHEN 325 MG TAB PO PRN (00:40)
[2019-03-07] MEDS: VANCOMYCIN HCL INJ 750 MG in SODIUM CHLORIDE 0.9% 250ML 250 ML IVPB SCH ×2 (00:50→12:27)
[2019-03-07] MEDS: IPRATROPIUM/ALBUTEROL 3 ML VIAL INH SCH ×5 (02:29→21:29)
[2019-03-07] MEDS: OMEPRAZOLE CAP 20 MG CAP PO SCH (06:26)
[2019-03-07] MEDS: guaiFENesin ER TAB 600 MG TAB PO SCH ×2 (08:20→20:51)
[2019-03-07] MEDS: DIVALPROEX SODIUM DR 250 MG TAB PO SCH ×2 (08:20→20:51)
[2019-03-07] MEDS: GABAPENTIN 300 MG CAP PO SCH (08:20)
[2019-03-07] MEDS: FUROSEMIDE 40 MG TAB PO SCH (08:21)
[2019-03-07] MEDS: POLYETHYLENE GLYCOL 3350 17 GM PCKT PO SCH (08:21)
[2019-03-07] MEDS: amLODIPine BESYLATE 5 MG TAB PO SCH (08:21)
[2019-03-07] MEDS: methylPREDNISolone SODIUM SUC 40 MG/ML VIAL IV SCH ×2 (08:21→20:50)
[2019-03-07] MEDS: ASPIRIN (ENTERIC COATED) 81 MG TAB PO SCH (08:21)
[2019-03-07] MEDS: METOPROLOL TARTRATE 50 MG TAB PO SCH ×2 (08:21→20:51)
[2019-03-07] MEDS: POTASSIUM CHLORIDE 10 MEQ TAB PO SCH (08:21)
[2019-03-07] MEDS: MULTIPLE VITAMIN 1 EA TAB PO SCH (08:21)
[2019-03-07] MEDS: NYSTATIN POWDER 15GM BTTL TOP SCH ×3 (08:22→20:52)
[2019-03-07] MEDS: LACTOBACILLUS 1 TAB PO SCH ×2 (08:28→20:51)
[2019-03-07] MEDS ORDERED: SODIUM CHLORIDE 0.9% 1000ML 1,000 ML IVS ONE (09:06)
[2019-03-07] MEDS ORDERED: DEXTROSE 50% 25 GM/50 ML SYG IV PRN (11:22)
[2019-03-07] MEDS ORDERED: GLUCAGON INJ 1 MG VIAL SUBCU PRN (11:22)
[2019-03-07] MEDS: INSULIN LISPRO 100 UNITS/ML PEN SUBCU SCH ×3 (11:33→20:59)
--- NOTE | 2019-03-07 11:36 | PN ---
SUPERVISING PHYSICIAN: Dameon Leonard MD DATE: 03/07/19 SUBJECTIVE: The patient is lying in bed sleeping. She awakens easily. She feels much better today although she is still quite weak. She denies chest pain or shortness of breath. No nausea or vomiting. OBJECTIVE: VITAL SIGNS: Temperature 98. Heart rate 103. Blood pressure 105/76. Respiratory rate 20. O2 saturation 97% on 2 liters nasal cannula. RESPIRATORY: Essentially clear to auscultation bilaterally, somewhat diminished at the bases. CARDIAC: Regular rate and rhythm. At times, she is slightly tachycardic. GASTROINTESTINAL: Abdomen is soft, nondistended. She has some mild suprapubic pain. Bowel sounds are positive. NEUROLOGIC: She is awake and alert. LABORATORY: WBCs are 14,800 with a left shift on differential. The remainder of her CBC is unremarkable. Her metabolic panel shows sodium 134, potassium 4, chloride 93, carbon dioxide 27, BUN 36, creatinine 0.82. Glucose 315. All other labs and films have been reviewed via the EMR. ASSESSMENT: 1. Chronic obstructive pulmonary disease with an exacerbation. 2. Pyelonephritis. 3. Altered mental status. 4. Hypertension. 5. History of cerebrovascular accident. 6. Atrial fibrillation. PLAN: We will continue present supportive care including her empiric antibiotics of cefepime and vancomycin. She has had Enterococcus in her urine in the past. She will continue on her nebulizer and steroids for her COPD exacerbation. Her home medications have been restarted. I will also transition her to oral prednisone as well as put her on some blood sugar checks with sliding scale insulin due to her elevated blood sugars. Hopefully tomorrow she can start on oral prednisone and can be discharged in the next 24 to 48 hours. We will check her lab in the morning and monitor her cultures. She did have lower urine output today, so I have given her 1 liter of fluids. We will continue to monitor the patient closely and follow as needed. #[id number] [facility]
[2019-03-07] MEDS: TIMOLOL MALEATE OP SCH (20:52)
[2019-03-08] MEDS: CEFEPIME 2 GM in SODIUM CHL 0.9% 50ML MIN-BAG+ 50 ML IVPB SCH ×3 (00:04→23:31)
[2019-03-08] MEDS ORDERED: SODIUM CHLORIDE 0.9% 250ML 250 ML ONE ×2 (01:09→19:04)
[2019-03-08] MEDS ORDERED: VANCOMYCIN HCL INJ 1,000 MG VIAL IVPB ONE ×2 (01:09→19:06)
[2019-03-08] MEDS: VANCOMYCIN HCL INJ 750 MG in SODIUM CHLORIDE 0.9% 250ML 250 ML IVPB SCH ×2 (01:11→12:30)
[2019-03-08] MEDS: IPRATROPIUM/ALBUTEROL 3 ML VIAL INH SCH ×3 (02:46→08:40)
[2019-03-08] MEDS: OMEPRAZOLE CAP 20 MG CAP PO SCH (06:06)
[2019-03-08] MEDS: INSULIN LISPRO 100 UNITS/ML PEN SUBCU SCH ×4 (07:39→20:44)
[2019-03-08] MEDS: predniSONE 20 MG TAB PO SCH (08:47)
[2019-03-08] MEDS: MULTIPLE VITAMIN 1 EA TAB PO SCH (08:47)
[2019-03-08] MEDS: POLYETHYLENE GLYCOL 3350 17 GM PCKT PO SCH (08:47)
[2019-03-08] MEDS: METOPROLOL TARTRATE 50 MG TAB PO SCH ×2 (08:48→20:35)
[2019-03-08] MEDS: FUROSEMIDE 40 MG TAB PO SCH (08:57)
[2019-03-08] MEDS: DIVALPROEX SODIUM DR 250 MG TAB PO SCH ×2 (08:57→20:35)
[2019-03-08] MEDS: POTASSIUM CHLORIDE 10 MEQ TAB PO SCH (08:57)
[2019-03-08] MEDS: ASPIRIN (ENTERIC COATED) 81 MG TAB PO SCH (08:57)
[2019-03-08] MEDS: GABAPENTIN 300 MG CAP PO SCH (08:57)
[2019-03-08] MEDS: LACTOBACILLUS 1 TAB PO SCH ×2 (08:58→20:36)
[2019-03-08] MEDS: guaiFENesin ER TAB 600 MG TAB PO SCH ×2 (08:58→20:35)
[2019-03-08] MEDS: amLODIPine BESYLATE 5 MG TAB PO SCH (08:58)
[2019-03-08] MEDS: NYSTATIN POWDER 15GM BTTL TOP SCH ×3 (08:58→20:36)
[2019-03-08] MEDS ORDERED: TEMAZEPAM 15 MG CAP PO PRN (10:55)
[2019-03-08] MEDS ORDERED: IPRATROPIUM/ALBUTEROL 3 ML VIAL NEB PRN (10:55)
[2019-03-08] MEDS ORDERED: ONDANSETRON INJ 4 MG/2 ML VIAL IV PRN (11:17)
--- NOTE | 2019-03-08 11:24 | PN ---
SUPERVISING PHYSICIAN: Dameon Leonard MD DATE: 03/08/19 SUBJECTIVE: The patient is lying in bed. She says she feel better, much less short of breath, but she has not been able to sleep. She denies chest pain, nausea or vomiting. OBJECTIVE: VITAL SIGNS: Temperature 97.7. Heart rate 104. Blood pressure 107/68. Respiratory rate 20. O2 saturation 96% on 2 liters nasal cannula. RESPIRATORY: Diminished at the bases with a few scattered rhonchi, but otherwise clear to auscultation. CARDIAC: Regular rate and rhythm. GASTROINTESTINAL: Abdomen is soft, nondistended, nontender. Bowel sounds are positive. NEUROLOGIC: She is awake, alert and oriented times 3. LABORATORY: WBCs are slightly improving to 13,600, hemoglobin 11.6, hematocrit 36.3. Her blood sugars were running in the 300s. As we titrated off the steroids, they are down to the low 200s. Electrolytes are basically within normal limits. Preliminary blood cultures are pending. Preliminary urine culture is pending. All other labs and films have been reviewed via the EMR. ASSESSMENT: 1. Chronic obstructive pulmonary disease with an exacerbation, improving. 2. Pyelonephritis, awaiting final urine culture. 3. Altered mental status. 4. Hypertension. 5. History of cerebrovascular accident. 6. Atrial fibrillation. PLAN: We will continue present supportive care including her cefepime and vancomycin. She has had Enterococcus in her urine in the past and we will continue on her present medications until those cultures come back. Her steroids have been tapered down to p.o. I have also cut down on her nebulizer treatments. I have added Restoril for sleep. She will have lab for in the morning. We will continue to monitor the patient closely and follow as needed. #[id number] [facility]TDD
[2019-03-08] MEDS ORDERED: ALPRAZolam 0.25 MG TAB PO PRN (12:11)
[2019-03-08] MEDS ORDERED: CEFEPIME 2 GM VIAL ONE ×2 (12:47→19:05)
[2019-03-08] MEDS ORDERED: SODIUM CHL 0.9% 50ML MIN-BAG+ 50 ML IVPB ONE ×2 (12:47→19:05)
[2019-03-08] MEDS: IPRATROPIUM/ALBUTEROL 3 ML VIAL NEB SCH ×3 (13:03→20:18)
[2019-03-08] MEDS: TIMOLOL MALEATE OP SCH (20:36)
[2019-03-08] MEDS: IV SET AND CAP CHANGE INJ INJ SCH (23:30)
[2019-03-08] MEDS: ENOXAPARIN SODIUM 40 MG/0.4 ML SYG SUBCU SCH (23:30)
[2019-03-09] MEDS: VANCOMYCIN HCL INJ 750 MG in SODIUM CHLORIDE 0.9% 250ML 250 ML IVPB SCH (00:06)
[2019-03-09] MEDS: OMEPRAZOLE CAP 20 MG CAP PO SCH (06:08)
[2019-03-09] MEDS: INSULIN LISPRO 100 UNITS/ML PEN SUBCU SCH (08:14)
[2019-03-09] MEDS: LACTOBACILLUS 1 TAB PO SCH (08:16)
[2019-03-09] MEDS: MULTIPLE VITAMIN 1 EA TAB PO SCH (08:16)
[2019-03-09] MEDS: ASPIRIN (ENTERIC COATED) 81 MG TAB PO SCH (08:16)
[2019-03-09] MEDS: amLODIPine BESYLATE 5 MG TAB PO SCH (08:16)
[2019-03-09] MEDS: predniSONE 20 MG TAB PO SCH (08:17)
[2019-03-09] MEDS: GABAPENTIN 300 MG CAP PO SCH (08:17)
[2019-03-09] MEDS: DIVALPROEX SODIUM DR 250 MG TAB PO SCH (08:17)
[2019-03-09] MEDS: POTASSIUM CHLORIDE 10 MEQ TAB PO SCH (08:17)
[2019-03-09] MEDS: FUROSEMIDE 40 MG TAB PO SCH (08:17)
[2019-03-09] MEDS: METOPROLOL TARTRATE 50 MG TAB PO SCH (08:17)
[2019-03-09] MEDS: guaiFENesin ER TAB 600 MG TAB PO SCH (08:17)
[2019-03-09] MEDS: POLYETHYLENE GLYCOL 3350 17 GM PCKT PO SCH (08:18)
[2019-03-09] MEDS: NYSTATIN POWDER 15GM BTTL TOP SCH (08:18)
[2019-03-09 10:36] VITALS: BP 123/73; TEMP 97.3; O2SAT 94
--- NOTE | 2019-03-09 10:51 | DS ---
SUPERVISING PHYSICIAN: Dameon Leonard MD DISCHARGE DIAGNOSIS: 1. Chronic obstructive pulmonary disease with an exacerbation, improving. 2. Pyelonephritis, urine culture grew out mixed microbial population present, no predominating organisms. 3. Altered mental status. 4. Hypertension. 5. History of cerebrovascular accident. 6. Atrial fibrillation. HISTORY OF PRESENT ILLNESS: This is a 78-year-old female who resides at [facility]. She was brought to the Emergency Room with altered mental status and shortness of breath. Apparently she was placed on oxygen there. She does not utilize oxygen on a regular basis. Additionally, she has an indwelling Simmons catheter that has become cloudy over the past 24 hours or so. For that reason, she was brought to the Emergency Room. Her chest x-ray showed cardiomegaly with no congestive heart failure and no infiltrates. Urinalysis was done previously and showed positive nitrites and findings consistent with urinary tract infection. In the Emergency Room, she was given steroids for COPD exacerbation as well as nebulizer treatments. She was referred for admission and was admitted to the hospital for COPD exacerbation as well as urinary tract infection. HOSPITAL COURSE: She was put on empiric antibiotics due to having Enterococcus in the past. She was on vancomycin and cefepime. She also was put on IV steroids as well as nebulizer treatments. Over the next 24 hours, her mental status improved and she responded to the treatment. Initially, the patient was put on Lovenox. She has a history of atrial fibrillation. She will be sent home on some Eliquis b.i.d. Her respiratory status improved over the next several days and she was titrated off of her IV steroids and changed to p.o. steroids. Her nebulizer treatments were also decreased. Her cultures came back today and she will be discharged back to [facility] in stable condition. LABORATORY: Her initial WBCs were 12,800. Then went as high as 14,800 and are down to 13,500. She is on steroids. Hemoglobin and hematocrit were stable at 12.7 and 39.3. She continued to have a left shift on her differential. Her blood sugars have run between 389 on admission and have stabilized down as we have titrated off of her steroids. Today, 166. Electrolytes are basically within normal limits. MICROBIOLOGY: Preliminary blood cultures are positive at 24 hours. We have no culture and sensitivity yet returned on those. Her influenza type A and B per PCR are both negative. RADIOLOGY: Her initial chest x-ray showed enlarged heart with no evidence of failure, no infiltrates seen. DISCHARGE PLAN: The patient will be discharged to [facility] today in stable condition. She is to resume her previous activity as well as diet. Her previous medications will be continued. In addition to her routine medications, she will have prednisone for 7 days. She will also have 5 additional days of cefdinir. I have also put her on Eliquis 2.5 mg twice daily. Her DuoNebs have been scheduled twice daily and then she has albuterol nebulizers as needed. [facility] blood [facility] are finalized. She is to return to the hospital or followup with Dr. Martinez for any problems or complications. DISCHARGE MEDICATIONS: 1. Valproic acid. 2. Timolol ophthalmic. 3. Multivitamins. 4. Metoprolol tartrate. 5. Acidophilus. 6. Amlodipine. 7. Naproxen. 8. Calcium carbonate. 9. Guaifenesin. 10. Zofran. 11. Aspirin. 12. Gabapentin. 13. Cranberry vitamin C. 14. Amino acids. 15. Potassium chloride. 16. Furosemide. 17. Nystatin. 18. Cefdinir. 19. Prednisone. 20. Eliquis. 21. Albuterol nebulizers p.r.n. 22. DuoNeb. #[id number] [facility]
[2019-03-09] MEDS: IPRATROPIUM/ALBUTEROL 3 ML VIAL NEB SCH (11:39)
== END 2019-03-09 10:30 | DRG 699 ==
LOC: ER 21:55 → OBSVTOIN 23:49 → MS 23:49
PROVIDERS: ADMIT Nurse Practitioner; ATTEND Nurse Practitioner Acute Care
DX: T83.511A Infection and inflammatory reaction due to indwelling urethral catheter, initial encounter (principal); J44.1 Chronic obstructive pulmonary disease with (acute) exacerbation; N12 Tubulo-interstitial nephritis, not specified as acute or chronic; I69.351 Hemiplegia and hemiparesis following cerebral infarction affecting right dominant side; I10 Essential (primary) hypertension; I48.91 Unspecified atrial fibrillation; G62.9 Polyneuropathy, unspecified; F03.90 Unspecified dementia, unspecified severity, without behavioral disturbance, psychotic disturbance, mood disturbance, and anxiety; Z88.0 Allergy status to penicillin; Z66 Do not resuscitate; Z88.2 Allergy status to sulfonamides; Z88.5 Allergy status to narcotic agent; Z91.048 Other nonmedicinal substance allergy status; Z79.1 Long term (current) use of non-steroidal anti-inflammatories (NSAID); Z79.82 Long term (current) use of aspirin; Z79.899 Other long term (current) drug therapy; Y84.6 Urinary catheterization as the cause of abnormal reaction of the patient, or of later complication, without mention of misadventure at the time of the procedure; Y92.129 Unspecified place in nursing home as the place of occurrence of the external cause